=== PATIENT | female | born 1990 | race Asian ===

== ENCOUNTER 2017-10-19 20:26 | Emergency (ER) | payer OTHER ==
[2017-10-19 20:41] VITALS: BP 111/62
[2017-10-19] MEDS ORDERED: Albuterol/Ipratropium NEB.SOL* Albuterol 2.5 MG/Ipratropium 0.5 MG 3 ML INH ONE (20:59)
--- NOTE | 2017-10-19 21:03 | UC ---
Respiratory Complaint HPI - HPI Summary HPI Summary: itchy rash on chest back abdomen and arms , also laryngitis, and tight congested chest began last night--- - History of Current Complaint Chief Complaint: UCRespiratory Stated Complaint: SORE THROAT, AND CHEST CONGESTION Time Seen by Provider: 10/19/17 20:41 Hx Obtained From: Patient Hx Last Menstrual Period: <1 WEEK AGO Onset/Duration: Sudden Onset, Lasting Days - 1 Timing: Constant Pain Intensity: 7 Pain Scale Used: 0-10 Numeric Character: Cough: Nonproductive Aggravating Factors: Nothing Alleviating Factors: Nothing Associated Signs And Symptoms: Positive: Pleuritic Chest Pain, URI, Nasal Congestion. Negative: Calf Pain, Calf Swelling - Allergies/Home Medications Allergies/Adverse Reactions: Allergies Allergy/AdvReac Type Severity Reaction Status Date / Time No Known Allergies Allergy Verified 10/19/17 20:41 Home Medications: Home Medications Pain Reliever* 1 tab PO ONCE PRN 10/19/17 [History Confirmed 10/19/17] PMH/Surg Hx/FS Hx/Imm Hx Previously Healthy: Yes - Surgical History Surgical History: Yes Surgery Procedure, Year, and Place: FOOT SURGERY (FX FOOT) - Social History Occupation: Employed Full-time Lives: With Family Alcohol Use: None Substance Use Type: None Smoking Status (MU): Never Smoked Tobacco Review of Systems Constitutional: Chills, Fatigue Skin: Rash Eyes: Negative ENT: Sore Throat, Nasal Discharge, Sinus Congestion Respiratory: Cough Cardiovascular: Negative Gastrointestinal: Negative Genitourinary: Negative Motor: Negative Neurovascular: Negative Musculoskeletal: Arthralgia, Myalgia Neurological: Negative Psychological: Negative Is Patient Immunocompromised?: No All Other Systems Reviewed And Are Negative: Yes Physical Exam Triage Information Reviewed: Yes Appearance: Well-Nourished, Ill-Appearing - mild, Pain Distress - mild Vital Signs: Initial Vital Signs Temp 98.8 F 10/19/17 20:35 Pulse 105 10/19/17 20:35 Resp 16 10/19/17 20:35 BP 111/62 10/19/17 20:35 Pulse Ox 98 10/19/17 20:35 Vital Signs Reviewed: Yes Eye Exam: Normal Eyes: Positive: Conjunctiva Clear ENT Exam: Normal ENT: Positive: Normal ENT inspection, Hearing grossly normal, Pharynx normal, TMs normal, Hoarse voice, Other. Negative: Pharyngeal erythema, Nasal congestion, Nasal drainage, Trismus, Muffled voice, Sinus tenderness Dental Exam: Normal Neck exam: Normal Neck: Positive: Supple, Nontender, No Lymphadenopathy Respiratory Exam: Normal Respiratory: Positive: Chest non-tender, Lungs clear, Normal breath sounds, No respiratory distress, No accessory muscle use Cardiovascular Exam: Normal Cardiovascular: Positive: RRR, No Murmur, Pulses Normal, Brisk Capillary Refill Musculoskeletal Exam: Normal Musculoskeletal: Positive: Strength Intact, ROM Intact, No Edema Neurological Exam: Normal Neurological: Positive: Alert, Muscle Tone Normal Psychological Exam: Normal Skin Exam: Normal UC Diagnostic Evaluation - Laboratory Result Diagrams: 10/19/17 21:53 O2 Sat by Pulse Oximetry: 98 Diagnostic Studies Comment: RST (-) Re-Evaluation - Re-Evaluation First Eval Change: Improved - relief with gi cocktail Respiratory Course/Dx - Course Course Of Treatment: benadryl and cool compress for rash, prolosec follow with pcp referrals made - Differential Dx/Diagnosis Provider Diagnoses: acid reflux, systemic allergic response Discharge - Sign-Out/Discharge Documenting (check all that apply): Patient Departure - Discharge Plan Condition: Stable Disposition: HOME Prescriptions: Omeprazole CAP* [Prilosec CAP* 20 MG] 40 mg PO DAILY 15 Days #30 cap. Patient Education Materials: Diphenhydramine (By mouth), Antacid, Calcium Containing (By mouth), Diet for Stomach Ulcers and Gastritis (ED), Gastroesophageal Reflux Disease (ED), Cold Compress or Soak (ED) Referrals: [facility] [Outside] - [address] [facility] [place] [facility] [Outside] - 2 Days - Billing Disposition and Condition Condition: STABLE Disposition: Home
[2017-10-19] MEDS ORDERED: Lidocaine 2% VISCOUS* 15 ML UDC PO ONE (21:25)
[2017-10-19] MEDS ORDERED: Al Hydrox/Mg Hydrox/Simet LIQ* 30 ML UDC PO ONE (21:25)
[2017-10-20 11:03] LABS: Hematocrit 39 % (35-47); Hemoglobin 12.8 g/dl (12.0-16.0); Mean Corpuscular HGB Conc 33 g/dl (31-36); Mean Corpuscular Hemoglobin 26 pg (27-31); Mean Corpuscular Volume 80 fL (80-97); Mean Platelet Volume 9.1 um3 (7.4-10.4); Platelet Count 342 10^3/ul (150-450); Red Blood Count 4.89 10^6/ul (4.00-5.40); Red Cell Distribution Width 15 % (10.5-15); White Blood Count 10.1 10^3/ul (3.5-10.8)
[2017-10-20 11:39] LABS: ABS Basophils 0 10^3/ul (0-0.2); ABS Eosinophils 0.2 10^3/ul (0-0.6); ABS Lymphocytes 1.5 10^3/ul (1.0-4.8); ABS Monocytes 0.4 10^3/ul (0-0.8); ABS Nucleated RBC 0.1 10^3/ul; Eosinophil % 1.9 % (0-6); Lymphocyte % 14.5 % (25-47); Nucleated Red Blood Cells % 0.5
--- NOTE | 2017-10-20 15:20 | UC ---
- Progress Note Progress Note: Reviewed chart as available from yesterday. CRP very elevated. No PCP of record available. Recommend reevaluation, in Emergency Department. Discharge - Sign-Out/Discharge Documenting (check all that apply): Post-Discharge Follow Up - Discharge Plan Condition: Stable Disposition: HOME Prescriptions: Omeprazole CAP* [Prilosec CAP* 20 MG] 40 mg PO DAILY 15 Days #30 cap. Patient Education Materials: Diphenhydramine (By mouth), Antacid, Calcium Containing (By mouth), Diet for Stomach Ulcers and Gastritis (ED), Gastroesophageal Reflux Disease (ED), Cold Compress or Soak (ED) Referrals: [facility] [Outside] - [address] [facility] [place] [facility]ERR[facility] [Outside] - 2 Days - Billing Disposition and Condition Condition: STABLE Disposition: Home
== END 2017-10-19 22:04 | disposition home or self-care (01) ==
LOC: UCEAST 20:26
DX: K21.9 Gastro-esophageal reflux disease without esophagitis (principal); T78.40XA Allergy, unspecified, initial encounter; R21 Rash and other nonspecific skin eruption; X58.XXXA Exposure to other specified factors, initial encounter
CPT/HCPCS: 36415; 85025; 86140; 87651; 99203; A9270-GY; G0463